=== PATIENT | female | born 1970 | race Caucasian/White ===

== ENCOUNTER 2019-08-19 23:39 | Emergency (ER) | payer OTHER, SELFPAY ==
[2019-08-20 00:55] VITALS: BP 143/84; PULSE 77; RESP 16; TEMP 37.1; O2SAT 99; BMI 39.4
--- NOTE | 2019-08-20 01:23 | ED.SKABFB ---
HPI - Skin/Abscess/Foreign Bdy General Chief complaint: Skin/Abscess/Foreign Body Stated complaint: staph infection back of head, draining Time Seen by Provider: 08/20/19 01:11 Source: patient Mode of arrival: Ambulatory Limitations: no limitations History of Present Illness HPI narrative: This is a 49-year-old female comes to the emergency department with complaint of an abscess on the back of her left scalp. Patient was seen several days ago, she states was draining a small amount of fluid they took a culture, she was contacted 2 days later and switched to Bactrim. Patient states that it was MRSA positive. Patient states that it was still painful and today it burst and a bunch of purulent fluid came out. She states it feels much better now. She has not any fevers. Her headache is gone. Her scalp pain is gone, she states she is able to range of motion her neck without any issue which was more comfortable before. She denies any other issues. Related Data Previous Rx's Medication Instructions Recorded propranolol 20 mg tablet 20 mg PO TID PRN #60 tab 06/29/19 lamotrigine 100 mg tablet 100 mg PO DAILY #30 tab 07/07/19 sertraline 100 mg tablet 100 mg PO DAILY #30 tab 07/17/19 Allergies Allergy/AdvReac Type Severity Reaction Status Date / Time iodine Allergy Unknown Unverified 05/03/19 13:39 Review of Systems Review of Systems ROS Unobtainable: All systems reviewed & are unremarkable except as noted in HPI and below Constitutional Constitutional: Denies chills, Denies fever(s) and Denies headache(s) (headache resolved after abscess drained.) ENT Ears, Nose, Mouth, and Throat: Denies headache(s) (headache resolved after abscess drained.) Neurologic Neurologic: Denies headache(s) (headache resolved after abscess drained.) [facility] Surgical History History of third molar tooth extraction History of tonsillectomy Status post delivery (12/30/04) Status post delivery (03/17/07) Social History Smoking Status: Never smoker Social History Smoking Status: Never smoker Exam Narrative Exam Narrative: GENERAL: Alert and oriented x three, preop well-nourished, well-appearing female in mild distress HEENT: Head normocephalic, atraumatic, EOMI, pupils reactive, face symmetric, moist mucous membranes, patient has a open abscess that is draining small amount of purulent fluid. I am unable to express any more with palpation. There is no surrounding erythema. NECK: Supple, full range of motion CARDIOVASCULAR: Regular rate and rhythm without murmurs, rubs or gallops. RESPIRATORY: Breath sounds equal bilaterally, no wheezes rales or rhonchi. EXTREMITIES: Normal range of motion, no clubbing or edema. Neurovascularly intact NEUROLOGICAL: Cranial nerves II through XII grossly intact. Moving all extremities SKIN: Warm, dry, no petechiae, no rashes or lesions. Initial Vital Signs Initial Vital Signs: Vital Signs Temperature 98.7 F 08/20/19 00:55 Pulse Rate 77 08/20/19 00:55 Respiratory Rate 16 08/20/19 00:55 Blood Pressure 143/84 H 08/20/19 00:55 Pulse Oximetry 99 08/20/19 00:55 Course Vital Signs Vital signs: Vital Signs - 8 hr 08/20/19 00:55 08/20/19 02:16 Temperature 98.7 F Pulse Rate 77 77 Respiratory Rate 16 16 Blood Pressure 143/84 H 149/76 H Pulse Oximetry 99 97 Discharge Plan Departure Patient Disposition: Home Clinical Impression: Abscess of scalp Discharge Date/Time: 08/20/19 02:16 Instructions: DI for Skin Abscess Activity Restrictions/Additional Instructions: Wound Care: Keep wound(s) clean and dry. Wash daily with soap and water only. Do not use over the counter products (alcohol or peroxide)on the wounds unless instructed by a physician. If wound condition worsens (increased/expanding redness, developing fluid blisters, or worsening pain), either contact your doctor for an urgent re-assessment , or return to the Emergency Department. Return to the Emergency Department for any new or worsening symptoms. Return if fever greater than 100.4 Fahrenheit, increased swelling, increasing pain or worsening symptoms such as increased discharge or spreading redness. Use warm compresses 3 times daily for 20 minutes to the affected area. Prescriptions: No Action propranolol 20 mg tablet 20 mg PO TID PRN (Reason: anxiety) Qty: 60 RF: 2 lamotrigine 100 mg tablet 100 mg PO DAILY Qty: 30 RF: 2 sertraline 100 mg tablet 100 mg PO DAILY Qty: 30 RF: 2
[2019-08-20 02:16] VITALS: BP 149/76; PULSE 77; RESP 16; O2SAT 97
== END 2019-08-20 02:16 | disposition home or self-care (01) ==
PROVIDERS: Emergency Provider Emergency Medicine
DX: L02.811 Cutaneous abscess of head [any part, except face] (principal)
CPT/HCPCS: 99282

== ENCOUNTER → 2020-01-03 09:40 | Outpatient (CLI) | payer OTHER, SELFPAY ==
[2020-01-03 10:22] LABS: Influenza A - CEPHEID Flu A NEGATIVE (NEGATIVE); Influenza B - CEPHEID Flu B NEGATIVE (NEGATIVE)
== END ==
LOC: LAB 09:41
PROVIDERS: Visit Provider Physician Assistant
DX: R68.89 Other general symptoms and signs (principal)
CPT/HCPCS: 87502

== ENCOUNTER → 2024-04-13 08:44 | Outpatient (CLI) | payer OTHER, SELFPAY ==
[2024-04-13 10:02] LABS: Influenza A - CEPHEID Flu A NEGATIVE (NEGATIVE); Influenza B - CEPHEID Flu B NEGATIVE (NEGATIVE); Respiratory Syncytial Virus Negative (Negative)
[2024-04-13 10:05] LABS: COVID-19 CEPHEID 4-PLEX PCR Negative (Negative)
== END ==
PROVIDERS: Visit Provider Physician Assistant Surgical
DX: R50.9 Fever, unspecified (principal); R05.1 Acute cough; J02.9 Acute pharyngitis, unspecified
CPT/HCPCS: 0241U; 87070

== ENCOUNTER → 2024-04-13 09:43 | Outpatient (CLI) | payer OTHER, SELFPAY ==
--- NOTE | 2024-04-13 09:44 | DI.RAD.S_ITS ---
PROCEDURE: XR CHEST 2V INDICATIONS: Dyspnea, cough TECHNIQUE: 2 views of the chest were acquired. COMPARISON: [facility], , CHEST 2 VIEW, 02/10/2018, 8:57. FINDINGS: Surgical changes and devices: None. Lungs and pleura: Streaky bibasilar opacities. Mediastinum: Mediastinal contours are normal. Heart size is normal. Bones and chest wall: No suspicious bony abnormalities. Soft tissues appear unremarkable. IMPRESSION: Streaky left basilar opacity, suggestive of atelectasis over infection. Dictated by: Canelo Ruiz M.D. on 04/13/2024 at 10:02 Approved by: Canelo Ruiz M.D. on 04/13/2024 at 10:05
== END ==
PROVIDERS: Referring Provider Physician Assistant Surgical; Visit Provider Physician Assistant Surgical
DX: J02.9 Acute pharyngitis, unspecified (principal); R06.00 Dyspnea, unspecified; R50.9 Fever, unspecified; R05.1 Acute cough
CPT/HCPCS: 0241U; 71046; 87070

== ENCOUNTER → 2024-05-05 15:10 | Outpatient (CLI) | payer OTHER, SELFPAY ==
--- NOTE | 2024-05-05 15:51 | DI.RAD.S_ITS ---
PROCEDURE: XR CHEST 2V INDICATIONS: cough TECHNIQUE: 2 views of the chest were acquired. COMPARISON: [facility], , XR CHEST 2V, 04/13/2024, 9:45. [facility], , CHEST 2 VIEW, 02/10/2018, 8:57. FINDINGS: Surgical changes and devices: None. Lungs and pleura: Lungs are clear. No pleural effusions or pneumothorax. Mediastinum: Mediastinal contours are normal. Heart size is normal. Bones and chest wall: No suspicious bony abnormalities. Soft tissues appear unremarkable. IMPRESSION: No acute cardiopulmonary abnormality is seen. Resolution of prior streaky bibasilar opacities. Dictated by: Tyler Wilder M.D. on 05/05/2024 at 16:26 Approved by: Tyler Wilder M.D. on 05/05/2024 at 16:29
[2024-05-05 16:12] LABS: Influenza A - CEPHEID Flu A NEGATIVE (NEGATIVE); Influenza B - CEPHEID Flu B NEGATIVE (NEGATIVE); Respiratory Syncytial Virus Negative (Negative)
[2024-05-05 16:18] LABS: COVID-19 CEPHEID 4-PLEX PCR Negative (Negative)
== END ==
PROVIDERS: Referring Provider Nurse Practitioner Family; Visit Provider Nurse Practitioner Family
DX: R05.1 Acute cough (principal); R05.9 Cough, unspecified
CPT/HCPCS: 0241U; 71046

== ENCOUNTER → 2025-05-17 07:09 | Outpatient (CLI) | payer OTHER, SELFPAY ==
[2025-05-17 07:52] LABS: Hematocrit 38.8 % (36-46); Mean Corpuscular HGB Conc 33.5 % (30-36); Mean Corpuscular Hemoglobin 28.5 PG (26-34); Platelet Count 351 X10^3/uL (150-400); Red Blood Cell Count 4.56 X10^6/uL (4.0-5.2); White Blood Cell Count 7.5 X10^3/uL (4.5-11.0)
[2025-05-17 08:13] LABS: Hemoglobin A1C% w Est Avg Glu 5.2 % (4.0-6.0)
[2025-05-17 08:15] LABS: Alanine Aminotransferase 13 IU/L (<35); Albumin 3.7 g/dL (3.5-5.0); Albumin Globulin Ratio 1.3 (1.0-2.8); Alkaline Phosphatase 82 U/L (38-126); Aspartate Aminotransferase 20 IU/L (14-36); Bilirubin Total 0.9 mg/dL (0.2-1.3); Blood Urea Nitrogen 18 mg/dL (7-17); Calcium 9.2 mg/dL (8.4-10.2); Carbon Dioxide 27 mmol/L (22-32); Chloride 106 mmol/L (98-107); Cholesterol 221 mg/dL (140-199); Estimated Glomerular Filt Rate > 60 mL/min (>60); Globulin 2.9 g/dL (1.7-4.1); Glucose 97 mg/dL (70-99); HDL Cholesterol 52 mg/dL (40-60); HEMOLYSIS < 15 (0-50); LDL Cholesterol Calculated 150 mg/dL (<100); Potassium 4.8 mmol/L (3.4-5.1); Sodium 139 mmol/L (137-145); Total Protein 6.6 g/dL (6.3-8.2); Triglycerides 93 mg/dL (35-150)
[2025-05-17 09:03] LABS: HIV 1 & 2 Ab/Ag 4th Gen Combo NEGATIVE (NEGATIVE); Hep C Virus Ab w/Reflex Quant NEGATIVE s/c (NEGATIVE)
== END ==
PROVIDERS: PCP Family Medicine; Referring Provider Family Medicine; Visit Provider Family Medicine
DX: Z11.4 Encounter for screening for human immunodeficiency virus [HIV] (principal); Z13.9 Encounter for screening, unspecified; Z11.59 Encounter for screening for other viral diseases; Z13.220 Encounter for screening for lipoid disorders; Z13.1 Encounter for screening for diabetes mellitus
CPT/HCPCS: 36415; 80053; 80061; 83036; 85027; 86803; 87389

== ENCOUNTER → 2025-05-24 09:24 | Outpatient (CLI) | payer OTHER, SELFPAY ==
--- NOTE | 2025-05-24 09:26 | DI.RAD.S_ITS ---
PROCEDURE: XR KNEE LT 3V INDICATIONS: Bilateral Knee Pain TECHNIQUE: 3 views of the knee were acquired. COMPARISON: [facility], , KNEE 3V LEFT, 06/09/2016, 15:34. FINDINGS: Bones: No fractures or dislocations. No suspicious bony lesions. Tricompartmental joint space narrowing with associated osteophytosis. Soft tissues: No joint effusion. No suspicious soft tissue calcifications. IMPRESSION: [id number] tricompartmental osteoarthritis. Kellgren-Daren Grade 2. Dictated by: Canelo Ruiz M.D. on 05/24/2025 at 16:13 Approved by: Canelo Ruiz M.D. on 05/24/2025 at 16:13
--- NOTE | 2025-05-24 09:26 | DI.RAD.S_ITS ---
PROCEDURE: XR FOOT LT MIN 3V INDICATIONS: Left Foot Pain TECHNIQUE: 3 views of the foot were acquired. COMPARISON: None. FINDINGS: Bones: No fractures or dislocations. No suspicious bony lesions. Plantar calcaneal enthesophytes. Soft tissues: No tibiotalar joint effusion. Achilles tendon appears normal. IMPRESSION: No acute bony abnormality. Dictated by: Canelo Ruiz M.D. on 05/24/2025 at 16:11 Approved by: Canelo Ruiz M.D. on 05/24/2025 at 16:13
--- NOTE | 2025-05-24 09:26 | DI.RAD.S_ITS ---
PROCEDURE: XR KNEE RT 3V INDICATIONS: Bilateral Knee Pain TECHNIQUE: 3 views of the knee were acquired. COMPARISON: [facility], , KNEE 3V LEFT, 06/09/2016, 15:34. FINDINGS: Bones: No fractures or dislocations. No suspicious bony lesions. Tricompartmental joint space narrowing with associated osteophytosis. Soft tissues: No joint effusion. No suspicious soft tissue calcifications. IMPRESSION: [id number] tricompartmental osteoarthritis. Kellgren-Daren Grade 2. Dictated by: Canelo Ruiz M.D. on 05/24/2025 at 16:14 Approved by: Canelo Ruiz M.D. on 05/24/2025 at 16:14
== END ==
PROVIDERS: PCP Family Medicine; Referring Provider Family Medicine; Visit Provider Family Medicine
DX: M17.0 Bilateral primary osteoarthritis of knee (principal); M25.561 Pain in right knee; M25.562 Pain in left knee; M79.672 Pain in left foot; G89.29 Other chronic pain
CPT/HCPCS: 73562; 73630

== ENCOUNTER → 2025-08-09 14:44 | Outpatient (CLI) | payer OTHER, SELFPAY | LOC: PHYS 14:45 | PROVIDERS: Family Provider Family Medicine; PCP Family Medicine; Referring Provider Family Medicine; Visit Provider Family Medicine | DX: R20.2 Paresthesia of skin (principal); M25.561 Pain in right knee; R20.0 Anesthesia of skin; M25.562 Pain in left knee; G89.29 Other chronic pain | CPT/HCPCS: 95886; 95910 ==

== ENCOUNTER → 2025-11-13 07:18 | Outpatient (CLI) | payer OTHER, SELFPAY ==
[2025-11-13 09:31] LABS: Vitamin B12 Reflex MMA if <400 541 pg/mL (239-931)
[2025-11-13 09:44] LABS: Folate 3.9 ng/mL (2.76-20.0)
== END ==
PROVIDERS: Family Provider Family Medicine; PCP Family Medicine; Referring Provider Family Medicine; Visit Provider Family Medicine
DX: R20.0 Anesthesia of skin (principal); R20.2 Paresthesia of skin
CPT/HCPCS: 36415; 82607; 82746